=== PATIENT | female | born 1935 | race Caucasian/White ===

== ENCOUNTER 2024-01-08 21:45 | Emergency (ER) | payer MEDICARE ==
[~2024-01-08] VITALS: Ht 157.5 cm; Wt 49.9 kg
[2024-01-08 21:45] VITALS: BP_SYST 152; PULSE 97; RESP 20; TEMP 98.9; O2SAT 93
[2024-01-08 22:30] LABS: EOSINOPHILS # (AUTO) 0.4 K/uL (0.0-0.4); HEMOGLOBIN 11.2 g/dL (12.0-16.0); LYMPHOCYTES # (AUTO) 1.4 K/uL (1.0-5.5); MEAN CORPUSCULAR VOLUME 82 fL (79.0-98.0)
[2024-01-08] MEDS ORDERED: BISA10SU61 RC (22:35)
[2024-01-08] MEDS ORDERED: LORA-259 PO (22:35)
[2024-01-08] MEDS ORDERED: ASPI-1155 PO (22:35)
[2024-01-08] MEDS ORDERED: TRAZ-250 PO (22:35)
[2024-01-08] MEDS ORDERED: CALC-827 PO (22:35)
[2024-01-08] MEDS ORDERED: DIVA-74 PO (22:35)
[2024-01-08] MEDS ORDERED: MELA3TAB41 PO (22:35)
[2024-01-08] MEDS ORDERED: MEMA5TAB PO (22:35)
[2024-01-08] MEDS ORDERED: CHOL500051 (22:35)
[2024-01-08] MEDS ORDERED: SENN8.6T19 PO (22:35)
[2024-01-08 22:36] LABS: BASOPHILS % (AUTO) 0.2 % (0.0-2.0); EOSINOPHILS % (AUTO) 2.8 % (0.0-4.0); HEMATOCRIT 34.1 % (36-48); LYMPHOCYTES % (AUTO) 9.6 % (20.5-51.5); MEAN CORPUSCULAR HEMOGLOBIN 27 pg (27-31); MEAN CORPUSCULAR HGB CONC 33 % (32-36); MONOCYTES # (AUTO) 1.3 K/uL (0.0-1.0); MONOCYTES % (AUTO) 9.2 % (1.7-9.3); NEUTROPHILS # (AUTO) 11.1 K/uL (1.8-7.7); NEUTROPHILS % (AUTO) 78.2 % (40.0-70.0); PLATELET COUNT (AUTO) 363 K/uL (130-430); RED BLOOD CELL COUNT(AUTO) 4.19 MIL/uL (4.2-6.2); RED CELL DISTRIBUTION WIDTH 19.9 % (9.0-15.0); WHITE BLOOD COUNT (AUTO) 14.2 K/uL (4.8-10.8)
[2024-01-08 22:41] LABS: BILIRUBIN,URINE NEGATIVE (NEGATIVE); BLOOD, URINE 2+ (NEGATIVE); CLARITY/URINE SL CLOUDY (CLEAR); COLOR,URINE YELLOW (YELLOW); GLUCOSE,URINE NEGATIVE (NEGATIVE); KETONES,URINE TRACE (NEGATIVE); LEUKOCYTE ESTERASE ,URINE 1+ (NEGATIVE); NITRITE, URINE POSITIVE (NEGATIVE); PROTEIN URINE 1+ (NEGATIVE); UROBILINOGEN,URINE 0.2 (0.2-1.0)
[2024-01-08 22:47] LABS: ANION GAP 7 (5-15); CALCIUM 9.4 mg/dL (8.4-11.0); CARBON DIOXIDE 28 mmol/L (23-29); CHLORIDE 106 mmol/L (98-107); CREATININE 0.78 mg/dL (0.55-1.30); GLUCOSE 94 mg/dL (74-106); POTASSIUM 4.5 mmol/L (3.5-5.1); SODIUM SERUM 141 mmol/L (136-145); UREA NITROGEN, BLOOD 25 mg/dL (8-21)
[2024-01-08 22:50] LABS: BACTERIA,URINE MANY /HPF (None Seen); HYALINE CASTS, URINE 0-10 /LPF (None Seen); MUCUS,URINE 1+ /LPF (None Seen); WBC,URINE 20-50 /HPF (0-3)
[2024-01-08 22:51] LABS: ALANINE AMINOTRANSFERASE 11 U/L (12-78); ALBUMIN 2.8 g/dL (3.4-4.8); ASPARTATE AMINOTRANSFERASE 13 U/L (10-37); BILIRUBIN,DIRECT 0.1 mg/dL (0.0-0.3); TOTAL BILIRUBIN 0.2 mg/dL (0.0-1.0); TOTAL PROTEIN, SERUM 6.8 g/dL (6.4-8.3)
[2024-01-08 22:54] LABS: PROTHROMBIN TIME 10.3 SECS (9.5-12.5)
[2024-01-08] MEDS: cefTRIAXone 1 GM IVPB PREMIX 50 ML IV ONE (23:01)
[2024-01-09] MEDS: DIPHENHYDRAMINE INJ 50 MG/ML VIAL IVP ONE (00:14)
[2024-01-09] MEDS ORDERED: CEPH-548 PO (00:41)
[2024-01-09 01:29] VITALS: BP_SYST 132; PULSE 83; RESP 20; TEMP 97.7; O2SAT 98
== END 2024-01-09 01:39 ==
LOC: SED 21:45
DX: N39.0 Urinary tract infection, site not specified (principal); D64.9 Anemia, unspecified; E88.09 Other disorders of plasma-protein metabolism, not elsewhere classified; I49.3 Ventricular premature depolarization; E63.9 Nutritional deficiency, unspecified; Z88.0 Allergy status to penicillin; G30.9 Alzheimer's disease, unspecified; F02.80 Dementia in other diseases classified elsewhere, unspecified severity, without behavioral disturbance, psychotic disturbance, mood disturbance, and anxiety; Z88.1 Allergy status to other antibiotic agents; Z79.899 Other long term (current) drug therapy
CPT/HCPCS: 99285; 96365; 71045; 80076; 80048; 81001; 83880; 85025; 85610; 85730; 87086; 84484; 36415; 93005; 83605; 81000; 87081; 87040; 96375; 81015; J0696; J1200